=== PATIENT | male | born 1940 | race Caucasian/White ===

== ENCOUNTER 2019-09-12 09:27 | Outpatient (CLI) | payer MEDICARE, OTHER ==
[2019-09-12] VITALS (22 sets, daily range): BP systolic 109–158; BP diastolic 48–104
[~2019-09-12 09:27] MED LIST: CEPH-419 PO; ZES10T PO
== END 2019-09-12 23:59 | disposition home or self-care (01) ==
LOC: CARD DIAG 09:27
PROVIDERS: ATTEND Internal Medicine Cardiovascular Disease
DX: R42 Dizziness and giddiness (principal)
CPT/HCPCS: 93660